=== PATIENT | female | born 1960 | race African-American/Black ===

== ENCOUNTER 2018-04-07 19:29 | Emergency (ER) | payer SELFPAY ==
[~2018-04-07] VITALS: Ht 154.9 cm; Wt 56.7 kg
[~2018-04-07 19:29] MED LIST: ASPI325T8 PO; LEVO150T5 PO; METO50TA6 PO
[2018-04-07 19:35] VITALS: BP 148/80
[2018-04-07] MEDS ORDERED: HYDROcodone/APAP 5/325MG 1 TAB TABLET PO ONE (19:45)
[2018-04-07] MEDS ORDERED: CYCLOBENZAPRINE 10 MG TABLET. PO ONE (19:45)
[2018-04-07] MEDS ORDERED: DICL50TA4 PO (19:49)
[2018-04-07] MEDS ORDERED: CYCL10TA2 PO (19:49)
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
== END 2018-04-07 20:30 | disposition home or self-care (01) ==
LOC: ER 19:29
DX: Z04.1 Encounter for examination and observation following transport accident (principal); M79.10 Myalgia, unspecified site; I10 Essential (primary) hypertension; I25.2 Old myocardial infarction; V87.7XXA Person injured in collision between other specified motor vehicles (traffic), initial encounter; Y93.89 Activity, other specified; Y92.410 Unspecified street and highway as the place of occurrence of the external cause; Y99.8 Other external cause status
CPT/HCPCS: 99283